=== PATIENT | male | born 1955 | race Caucasian/White ===

== ENCOUNTER → 2016-03-19 | Outpatient (CLI) | payer OTHER ==
[~2016-03-19] MED LIST: ASCA500 PO; CHOL1000 PO; DPRSCR15 TOP; LOSA1TAB38 PO; MULTTAB58 PO; TURM500T PO
--- NOTE | 2016-03-19 13:31 | DIAGNOSTIC IMAGING REPORT ---
TWO VIEW CHEST CLINICAL HISTORY: Cough. FINDINGS: PA and lateral chest radiographs are obtained. No prior studies are available for comparison at the time of dictation. The cardiomediastinal silhouette is unremarkable. Enlargement of the central pulmonary vessels suggests pulmonary artery hypertension. The lungs and pleural spaces are clear. There is no pneumothorax. The bony thorax appears intact. IMPRESSION: No active disease in the chest. Electronically signed by: Nino Coronado M.D. 03/19/2016 1:29 PM Dictated Date/Time: 03/19/2016 1:28 PM
== END | disposition home or self-care (01) ==
LOC: C.RADPV 13:11
PROVIDERS: ATTEND Family Medicine
DX: R05 Cough (principal)

== ENCOUNTER → 2016-03-20 | Outpatient (CLI) | payer OTHER | END | disposition home or self-care (01) | LOC: C.LABPVFM 03-20 10:36 | PROVIDERS: ATTEND Family Medicine | DX: R05 Cough (principal) ==

== ENCOUNTER → 2016-10-14 | Day surgery (SDC) | payer OTHER ==
[2016-10-04 11:06] VITALS: Ht 185.4 cm; Wt 110.5 kg
[~2016-10-14] VITALS: Ht 185.4 cm; Wt 110.5 kg
[~2016-10-14] MED LIST changes: +LIDOCAINE HCL 2% 2 ML VIAL (20MG/ML) ONE; +PROPOFOL IV EMULSION 10 MG/ML 20 ML VIAL IV ONE; +SODIUM CHLORIDE 0.9% 500ML 500 ML IV ONE
--- NOTE | 2016-10-14 14:24 | Endo History and Physical ---
History & Physical Date of Service: Oct 14, 2016. Chief Complaint: Screening Referring Physician: Dr. Erazo History of Present Illness 61 yo CM who presents for screening colonoscopy. Past Surgical History Hx Cardiac Surgery: No Hx Internal Defibrillator: No Hx Pacemaker: No Hx Abdominal Surgery: Yes (EXPLORATORY LAP FOR RUPTURED APPY (ABCESSED) WITH BOWEL RECONSTRUCTION) Hx of Implantable Prosthesis: No Hx Post-Op Nausea and Vomiting: No Hx Cancer Surgery: No Hx Thoracic Surgery: No Hx Orthopedic: No Hx Urinary Tract Surgery: No Family History None Social History Smoking Status: Never Smoker Hx Substance Use: No Hx Alcohol Use: No Allergies Coded Allergies: ANKUSH Inhibitors (Verified Adverse Reaction, Unknown, COUGH, 10/14/16) Current Medications Reported Home Medications Medications Dose Route/Sig Max Daily Dose Days Date Category Turmeric (Turmeric (Curcuma Longa)) 500 Mg Tab 1 Tab PO QAM 10/04/16 Reported Vitamin C (Ascorbic Acid) 500 Mg Tab 1 Tab PO QAM 10/04/16 Reported Vitamin D3 (Cholecalciferol) 1,000 Unit Tab 1 Tab PO QAM 10/04/16 Reported Multivitamin (Multiple Vitamin) 1 Tab Tab 1 Tab PO QAM 10/04/16 Reported Betamethasone Dipropionat (Betamethasone Dip) 45 Appln/15 Gm Cr 1 Appln TOP DAILY PRN 10/04/16 Reported Cozaar (Losartan Potassium) 100 Mg Tab 100 Mg PO QAM 10/04/16 Reported Vital Signs Weight (Kilograms): 110.45 Height (Feet): 6 Height (Inches): 1 Physical Exam General Appearance: WD/WN, no apparent distress Respiratory/Chest: Auscultation: breath sounds normal Cardiovascular: Heart Auscultation: RRR Abdomen: Bowel Sounds: normal Inspection & Palpation: soft, non-distended, no tenderness, guarding & rebound Assessment and Plan Assessment: 61 yo CM who presents for screening colonoscopy. Plan: Proceed with colonoscopy.
--- NOTE | 2016-10-14 16:01 | GI REPORT ---
Procedure Date: 10/14/2016 3:26 PM Procedure: Colonoscopy Indications: Screening for colorectal malignant neoplasm Medicines: Monitored Anesthesia Care Complications: No immediate complications. Estimated Blood Loss: Estimated blood loss: none. Procedure: Pre-Anesthesia Assessment: - Prior to the procedure, a History and Physical was performed, and patient medications and allergies were reviewed. The patient's tolerance of previous anesthesia was also reviewed. The risks and benefits of the procedure and the sedation options and risks were discussed with the patient. All questions were answered, and informed consent was obtained. Prior Anticoagulants: The patient has taken no previous anticoagulant or antiplatelet agents. ASA Grade Assessment: II - A patient with mild systemic disease. After reviewing the risks and benefits, the patient was deemed in satisfactory condition to undergo the procedure. After I obtained informed consent, the scope was passed under direct vision. Throughout the procedure, the patient's blood pressure, pulse, and oxygen saturations were monitored continuously. The On-site loaner was introduced through the anus and advanced to the terminal ileum. The colonoscopy was performed without difficulty. The patient tolerated the procedure well. The quality of the bowel preparation was good. The terminal ileum, ileocecal valve, appendiceal orifice, and rectum were photographed. Findings: Multiple small-mouthed diverticula were found in the sigmoid colon. Non-bleeding internal hemorrhoids were found during retroflexion. The hemorrhoids were small. Impression: - Diverticulosis in the sigmoid colon. - Non-bleeding internal hemorrhoids. - No specimens collected. Recommendation: - Resume previous diet. - Continue present medications. - Repeat colonoscopy in 10 years for surveillance. - Return to primary care physician as previously scheduled. Salvatore Pandya, 10/14/2016 4:01:29 PM This report has been signed electronically. Note Initiated On: 10/14/2016 3:26 PM I attest to the content of the Intraoperative Record and orders documented therein, exceptions below
--- NOTE | 2016-10-14 16:03 | Anesthesiology Progress Note ---
Anesthesia Post Op Note Date & Time Oct 14, 2016 at 16:03 Vital Signs Pain Intensity: 0 Vital Signs Past 12 Hours Date Time Temp Pulse Resp B/P (MAP) Pulse Ox O2 Delivery O2 Flow Rate FiO2 10/14/16 14:20 36.8 71 18 152/80 (104) 95 Room Air Notes Mental Status: alert / awake / arousable, participated in evaluation Pt Amnestic to Procedure: Yes Nausea / Vomiting: adequately controlled Pain: adequately controlled Airway Patency, RR, SpO2: stable & adequate BP & HR: stable & adequate Hydration State: stable & adequate Anesthetic Complications: no major complications apparent
--- NOTE | 2016-10-14 16:22 | Discharge Instructions ---
Endoscopy Patient Instructions Date / Procedure(s) Performed Oct 14, 2016. Colonoscopy Allergy Information Coded Allergies: ANKUSH Inhibitors (Verified Adverse Reaction, Unknown, COUGH, 10/14/16) Discharge Date / Findings Oct 14, 2016. Diverticulosis Internal hemorrhoids Medication Instructions OK to resume all medications today as prescribed Reported Home Medications Medications Dose Route/Sig Max Daily Dose Days Date Category Turmeric (Turmeric (Curcuma Longa)) 500 Mg Tab 1 Tab PO QAM 10/04/16 Reported Vitamin C (Ascorbic Acid) 500 Mg Tab 1 Tab PO QAM 10/04/16 Reported Vitamin D3 (Cholecalciferol) 1,000 Unit Tab 1 Tab PO QAM 10/04/16 Reported Multivitamin (Multiple Vitamin) 1 Tab Tab 1 Tab PO QAM 10/04/16 Reported Betamethasone Dipropionat (Betamethasone Dip) 45 Appln/15 Gm Cr 1 Appln TOP DAILY PRN 10/04/16 Reported Cozaar (Losartan Potassium) 100 Mg Tab 100 Mg PO QAM 10/04/16 Reported Provider Instructions Activity Restrictions - No exercising or heavy lifting for 24 hours. - Do not drink alcohol the day of the procedure. - Do not drive a car or operate machinery until the day after the procedure. - Do not make any important decisions or sign important papers in 24 hours after the procedure. Following Day: - Return to full activity which may include returning to work/school. Diet Start your diet with liquids and light foods (jello, soup, juice, toast). Then eat your usual diet if not nauseated. Treatment For Common After Affects For mild abdominal pain, bloating, or excessive gas: - Rest - Eat lightly - Lie on right side Follow-Up Information Follow-up with Kacey as scheduled Anesthesia Information What You Should Know You have had a procedure that required some medicine to reduce anxiety and discomfort. This treatment is called moderate sedation. After receiving the treatment, you may be sleepy, but you will be able to breathe on your own. The effects of the treatment may last for several hours. Follow these instructions along with Activity/Diet recommendations noted above: * Do NOT do anything where dizziness or clumsiness would be dangerous. * Rest quietly at home today, then you can be up and about tomorrow. * Have a responsible person stay with you the rest of today. * You may have had an I.V. today. If so, you may take the dressing off later today. Recommendations Call your doctor if: * Trouble breathing * Continuous vomiting for more than 24 hours * Temperature above 101 degrees * Severe abdominal pain or bloating * Pain not relieved by pain medicine ordered * There is increased drainage or redness from any incision * A large amount of rectal bleeding greater than 2-3 tablespoons. (If you had a polyp/s removed or have hemorrhoids, a small amount of blood - from the rectum is to be expected.) * You have any unanswered questions or concerns. IN THE EVENT OF A SERIOUS EMERGENCY, GO TO THE NEAREST EMERGENCY ROOM Your discharge instructions were prepared by provider Salvatore Pandya. Patient Instructions Signature Page Ramy Sanders Patient (or Guardian) Signature/Date: I have read and understand the instructions given to me by my caregivers. Caregiver/RN/Doctor Signature/Date: The above-named patient and/or guardian has received patient instructions on this date. + Original Patient Signature Page (only) stays with chart. Please make copy for patient.
[2016-10-14 16:29] VITALS: BP 137/77; PULSE 61; O2SAT 98
== END | disposition home or self-care (01) ==
LOC: C.GI 13:37
PROVIDERS: ATTEND Internal Medicine
DX: Z12.11 Encounter for screening for malignant neoplasm of colon (principal); K57.30 Diverticulosis of large intestine without perforation or abscess without bleeding; K64.8 Other hemorrhoids; Z79.899 Other long term (current) drug therapy

== ENCOUNTER → 2016-10-19 | Outpatient (CLI) | payer OTHER ==
[~2016-10-19] MED LIST changes: -LIDOCAINE HCL 2% 2 ML VIAL (20MG/ML) ONE; -PROPOFOL IV EMULSION 10 MG/ML 20 ML VIAL IV ONE; -SODIUM CHLORIDE 0.9% 500ML 500 ML IV ONE
[2016-10-19 13:29] LABS: ALT/SGPT 46 U/L (12-78); BLOOD UREA NITROGEN 18 mg/dl (7-18); BUN/CREATININE RATIO 17.5 (10-20); CALCIUM 9.1 mg/dl (8.5-10.1); CARBON DIOXIDE 28 mmol/L (21-32); CHLORIDE 104 mmol/L (98-107); CHOLESTEROL 186 mg/dl (0-200); GLUCOSE 137 mg/dl (70-99); POTASSIUM 4.4 mmol/L (3.5-5.1); SODIUM 138 mmol/L (136-145); TRIGLYCERIDES 93 mg/dl (0-150); VERY LOW DENSITY LIPOPROT CALC 19 mg/dl
[2016-10-19 13:34] LABS: ALB/GLOB RATIO 1.2 (0.9-2); ALKALINE PHOSPHATASE 70 U/L (45-117); AST/SGOT 29 U/L (15-37); HDL CHOLESTEROL 46 mg/dl; LDL CHOLESTEROL CALCULATED 121 mg/dl
== END | disposition home or self-care (01) ==
LOC: C.LABPVFM 10:42
PROVIDERS: ATTEND Family Medicine
DX: I10 Essential (primary) hypertension (principal)

== ENCOUNTER → 2017-04-23 | Outpatient (CLI) | payer OTHER ==
[2017-04-23 12:50] LABS: HEMOGLOBIN A1C 6.7 % (4.5-5.6)
[2017-04-23 13:14] LABS: BLOOD UREA NITROGEN 19 mg/dl (7-18); CALCIUM 9.2 mg/dl (8.5-10.1); CARBON DIOXIDE 27 mmol/L (21-32); CREATININE 1.09 mg/dl (0.60-1.40); GLUCOSE 139 mg/dl (70-99); POTASSIUM 4.4 mmol/L (3.5-5.1); SODIUM 135 mmol/L (136-145)
[2017-04-23 13:16] LABS: CHOLESTEROL 173 mg/dl (0-200); LDL CHOLESTEROL CALCULATED 113 mg/dl
== END | disposition home or self-care (01) ==
LOC: C.LABPVFM 08:45
PROVIDERS: ATTEND Family Medicine
DX: I10 Essential (primary) hypertension (principal); E78.5 Hyperlipidemia, unspecified; R73.9 Hyperglycemia, unspecified

== ENCOUNTER → 2017-10-15 | Outpatient (CLI) | payer OTHER ==
[2017-10-15 13:13] LABS: ALBUMIN 3.5 gm/dl (3.4-5.0); ALKALINE PHOSPHATASE 76 U/L (45-117); ALT/SGPT 25 U/L (12-78); AST/SGOT 20 U/L (15-37); BLOOD UREA NITROGEN 24 mg/dl (7-18); CALCIUM 8.6 mg/dl (8.5-10.1); CARBON DIOXIDE 27 mmol/L (21-32); CREATININE 1.29 mg/dl (0.60-1.40); GLUCOSE 143 mg/dl (70-99); POTASSIUM 4.6 mmol/L (3.5-5.1); SODIUM 138 mmol/L (136-145); TOTAL PROTEIN 6.8 gm/dl (6.4-8.2)
[2017-10-15 13:17] LABS: HEMOGLOBIN A1C 6.5 % (4.5-5.6)
== END | disposition home or self-care (01) ==
LOC: C.LABPVFM 08:36
PROVIDERS: ATTEND Family Medicine
DX: I10 Essential (primary) hypertension (principal); E78.5 Hyperlipidemia, unspecified; L30.9 Dermatitis, unspecified; E11.9 Type 2 diabetes mellitus without complications

== ENCOUNTER 2019-09-05 13:38 | Inpatient (IN) ==
[2019-09-05] MEDS ORDERED: MoRPHine SULFATE 4 MG/ML 1 ML CARP\\VIAL IV STA (13:47)
[2019-09-05] MEDS ORDERED: NITROGLYCERIN 2% OINTMENT 30GM TUBE EXT STA (13:47)
[2019-09-05 13:59] LABS: Basophils # (auto) 0.03 K/uL (0-0.2); Basophils % (auto) 0.3 %; Eosinophils # (auto) 0.07 K/uL (0-0.5); Eosinophils % (auto) 0.7 %; Hematocrit (blood only) 45.6 % (42-52); Hemoglobin 15.4 g/dL (14.0-18.0); Immature Granulocytes # (auto) 0.03 K/uL (0.00-0.02); Immature Granulocytes % (auto) 0.3 %; Lymphocytes % (auto) 13.8 %; Mean Corpuscular Hemoglobin 30.7 pg (25-34); Mean Corpuscular Hgb Conc 33.8 g/dL (32-36); Mean Platelet Volume 9.3 fL (7.4-10.4); Monocytes # (auto) 0.58 K/uL (0.11-0.59); Monocytes % (auto) 5.7 %; Neutrophils # (auto) 8.01 K/uL (1.4-6.5); Neutrophils % (auto) 79.2 %; Platelet Count 240 K/uL (130-400); RDW Coefficient of Variation 13.9 % (11.5-14.5); RDW Standard Deviation 46.1 fL (36.4-46.3); Red Blood Count 5.01 M/uL (4.7-6.1); White Blood Count 10.12 K/uL (4.8-10.8)
[2019-09-05] MEDS ORDERED: SODIUM CHLORIDE 0.9% 500 ML IV SCH (14:00)
[2019-09-05 14:09] LABS: iSTAT Creatinine 1.1 mg/dl (0.6-1.3); iSTAT Hemoglobin 15.3 g/dl (14.0-18.0); iSTAT Ionized Calcium 1.17 mmol/l (1.12-1.32); iSTAT Potassium 4.4 mmol/L (3.3-5.0)
[2019-09-05 14:10] LABS: INR 1.1 (0.9-1.1); Partial Thromboplastin Ratio 0.9; Partial Thromboplastin Time 24.4 Seconds (21.0-31.0); Prothrombin Time 11.3 Seconds (9.0-12.0)
--- NOTE | 2019-09-05 14:14 | Emergency Department Note ---
Impression & Plan Acute non-ST elevation myocardial infarction (NSTEMI), Acute hyperglycemia, Syncope ED Provider Note NAME: SHAE ISSA AGE: 63 SEX: M : 1955 ARRIVES VIA: Ambulance INFORMANT: Patient, ED PROVIDER(S): Kalyan Lao MD Chief Complaint: Chest pain HPI: Patient states that he said shortness of breath for several weeks but noticed that he was having some left-sided chest pain. Patient described it as though something was sitting on the chest. Patient states it is nonradiating did have associated diaphoresis nausea and vomiting. The patient did receive aspirin and nitroglycerin in route. That did improve his symptoms. He stated that the morphine made his stomach upset. The patient denies any prior history of stroke or heart attack. 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 The patient is not currently on any blood thinning medications. The patient had gone out to work on his truck earlier today and felt very lightheaded and subsequently got himself down on the ground where he reportedly passed out for several minutes. Patient denies any recent travel, fevers, chills, cough or shortness of breath. ROS: See HPI for pertinent positives and negatives. A total of 10 systems were reviewed and otherwise negative. Past medical history: See below Surgical history: See below Social history: See below Physical Exam: GENERAL: Moderate distress, mildly ill-appearing. Pale in appearance. EYE EXAM: Normal conjunctiva. PERRL, no anisocoria and EOM's grossly intact w/o pain. NECK: Supple, no nuchal rigidity, no adenopathy, non-tender. No signs of menin gismus. LUNGS: Clear to auscultation. Normal chest wall mechanics. HEART: NSR, no MRG. ABDOMEN: Abdomen soft, non-tender, normo-active bowel sounds, no masses, no rebound or guarding. Well-healed right lower quadrant surgical scar. BACK: No CVA TTP. SKIN: No rashes and no bruising. UPPER EXTREMITIES: Upper extremities are grossly normal. LOWER EXTREMITIES: Grossly normal, no edema. Negative Homans sign bilaterally. NEURO EXAM: Opens eyes to voice, follows all commands, cranial nerves II-XII g rossly intact, normal speech, moves all 4 extremities on command w/o issue. Differential diagnoses: Cardiac ischemia, aortic dissection, pulmonary embolism, pneumothorax, pneumonia, pericarditis, myocarditis, esophageal rupture, GERD, cholecystitis, pancreatitis, musculoskeletal, as well as other pathologies. Course: Patient was seen and evaluated the bedside. Full history physical exam was performed. EKG: Indication: Chest pain Normal sinus rhythm, rate of 96, prolonged QTC, normal axis, T wave inversions inferiorly possibly with a very slight depression. No obvious changes in the an terior or lateral leads. No prior for comparison. Repeat EKG indication: Chest pain Normal sinus rhythm, rate of 95, normal intervals, normal axis, T wave inversions still present in the inferior leads with possible subtle depression. No ST changes. This does appear unchanged from prior EKG at 1344 Imaging Studies: Radiology results as stated below per my review in the radiologist's interpret ation: Cardiac monitoring: An order was placed for continuous cardiac monitoring. The monitor shows a rate of 96 with sinus rhythm. MDM: Patient does present with concern for chest pain. Patient did receive aspirin nitro in route with mild relief. Patient did have immediate blood work completed along with a troponin. Troponin is detectable 0.15. I did call x-ray in order to obtain a stat chest x-ray with the thinking that if the cardiomediastinal silhouette appears grossly normal will start heparin. Patient did have improvement with the Nitropaste and had already received aspirin. Kailyn ramirez's has a normal white count H&H and platelet count. Lab troponin is 0.236. This x-ray appears clear heparin bolus and drip ordered. I did speak with the on-call buyer agent, Dr. Mota, as I was concerned about the patient's NSTEMI. He did recommend a Plavix load. Otherwise, in agreement with current medications and management. This was ordered. I did speak with the on-call hospitalist Dr. Carcamo. The patient was subsequently made to the medicine service. I did convey to the patient that if at any time he had a change in his chest pain he would need to let somebody know in order to repeat EKG to check for dynamic changes. Patient understood. Critical Care: I have personally spent 42 minutes of critical care time in direct management of this patient. This includes bedside care, interpretation of diagnostic studies, and testing, discussion with consultants, patient, and family members, and other require inpatient management activities. This 42 minutes is in excess of all separately billable procedures. Past Med/Surg History Medical History Asymmetrical right sensorineural hearing loss Diabetes mellitus Hyperlipidemia Hypertension Surgical History H/O hernia repair H/O vasectomy History of appendectomy Family History Mother Diabetes Hypertension Father Hypertension Pancreas cancer Sister Skin cancer Allergies Hypertension Denies family history of Ovarian cancer Prostate cancer Myocardial infarction Breast cancer Colorectal cancer Social History marital status: Current Living Situation: Spouse current occupational status: employed current occupation: plant maintenance supervisor at [employer] Feels Safe at Home: Yes Smoking Status: Never smoker Hx Alcohol Use: Yes Hx Substance Use: No caffeine: Yes Dental Care, Regularly: No Physical Activity Frequency: 1-2 Times per Week Seatbelt Use: always Sunscreen Use: Yes Allergies Allergies Allergy/AdvReac Type Severity Reaction Status Date / Time ANKUSH Inhibitors AdvReac Unknown COUGH Verified 09/05/19 15:12 Home Meds Home Medications Medication Instructions Recorded Confirmed betamethasone dipropionate 0.05 % 1 appln TOPICAL DAILY PRN #1 ml 09/19/18 09/05/19 lotion metronidazole 1 % topical gel 1 appln TOPICAL DAILY PRN #1 gm 09/19/18 09/05/19 tadalafil 20 mg tablet 20 mg PO UD PRN #18 tab 10/26/18 09/05/19 aspirin 81 mg PO QAM 09/05/19 09/05/19 clobetasol 1 appln TOP BID PRN 09/05/19 09/05/19 losartan 100 mg PO QAM 09/05/19 09/05/19 metformin 500 mg PO BID 09/05/19 09/05/19 metoprolol succinate 12.5 mg PO QAM 09/05/19 09/05/19 Previous Rx's Medication Instructions Recorded albuterol sulfate 90 mcg/actuation See Rx Instructions .ROUTE 03/26/19 aerosol inhaler .COMPLEX #8.5 gram Results & Data (ED) Vital Signs Vital Signs - 24 hr 09/05/19 13:41 09/05/19 13:45 09/05/19 13:59 Temperature Temperature Source Pulse Rate 100 H 97 H Pulse Rate [Apical] Pulse Rate from SpO2 Sensor 98 H 100 H 98 H Pulse Rhythm Pulse Strength Respiratory Rate 21 13 Respiratory Effort / Characteristics Respiratory Depth Blood Pressure 145/95 H 148/91 H 142/90 H Blood Pressure [Right Arm] Blood Pressure Mean 100 114 112 Blood Pressure Mean [Right Arm] Blood Pressure Position Pulse Oximetry 94 94 92 Oxygen Delivery Method Oxygen Flow Rate Sepsis Recent Fever Within 48 Hours Sepsis Action Taken by Nursing 09/05/19 14:00 09/05/19 14:14 09/05/19 14:15 Temperature 37 C Temperature Source Oral Pulse Rate 95 H 92 H 97 H Pulse Rate [Apical] Pulse Rate from SpO2 Sensor 95 H 98 H Pulse Rhythm Regular Pulse Strength Normal Respiratory Rate 17 22 24 Respiratory Effort / Characteristics Non-Labored Spontaneous Respiratory Depth Normal Blood Pressure 142/92 H 145/95 H 110/85 Blood Pressure [Right Arm] Blood Pressure Mean 106 111 98 Blood Pressure Mean [Right Arm] Blood Pressure Position Sitting Pulse Oximetry 96 98 95 Oxygen Delivery Method Room Air Oxygen Flow Rate Sepsis Recent Fever Within 48 Hours No Sepsis Action Taken by Nursing No Action Required 09/05/19 14:30 09/05/19 14:45 09/05/19 15:00 Temperature Temperature Source Pulse Rate 92 H 94 H 96 H Pulse Rate [Apical] Pulse Rate from SpO2 Sensor 93 H 95 H 95 H Pulse Rhythm Pulse Strength Respiratory Rate 12 21 12 Respiratory Effort / Characteristics Respiratory Depth Blood Pressure 128/90 127/90 136/89 Blood Pressure [Right Arm] Blood Pressure Mean 107 104 95 Blood Pressure Mean [Right Arm] Blood Pressure Position Pulse Oximetry 97 97 96 Oxygen Delivery Method Room Air Oxygen Flow Rate Sepsis Recent Fever Within 48 Hours Sepsis Action Taken by Nursing 09/05/19 15:01 09/05/19 15:15 09/05/19 15:31 Temperature Temperature Source Pulse Rate 92 H 95 H Pulse Rate [Apical] 96 H Pulse Rate from SpO2 Sensor 92 H 96 H Pulse Rhythm Pulse Strength Respiratory Rate 13 14 18 Respiratory Effort / Characteristics Non-Labored Respiratory Depth Normal Blood Pressure 140/81 Blood Pressure [Right Arm] 125/87 Blood Pressure Mean 98 Blood Pressure Mean [Right Arm] 99 Blood Pressure Position Pulse Oximetry 94 95 96 Oxygen Delivery Method Nasal Cannula Oxygen Flow Rate 2 Sepsis Recent Fever Within 48 Hours Sepsis Action Taken by Detention Medications Current Medication List: was personally reviewed by me Laboratory Data Attestation: I reviewed the patient's lab results. Result diagrams: 09/05/19 13:50 09/05/19 13:50 Lab Results 09/05/19 09/05/19 09/05/19 Range/Units 13:50 13:50 13:50 WBC 10.12 (4.8-10.8) K/uL RBC 5.01 (4.7-6.1) M/uL Hgb 15.4 (14.0-18.0) g/dL POC Hgb (14.0-18.0) g/dl Hct 45.6 (42-52) % POC Hct (42-52) % MCV 91.0 (80-100) fL MCH 30.7 (25-34) pg MCHC 33.8 (32-36) g/dL RDW Std Deviation 46.1 (36.4-46.3) fL RDW Coeff of Abraham 13.9 (11.5-14.5) % Plt Count 240 (130-400) K/uL MPV 9.3 (7.4-10.4) fL Immature Gran % (Auto) 0.3 % Neut % (Auto) 79.2 % Lymph % (Auto) 13.8 % [place] % (Auto) 5.7 % Eos % (Auto) 0.7 % Baso % (Auto) 0.3 % Neut # (Auto) 8.01 H (1.4-6.5) K/uL Lymph # (Auto) 1.40 (1.2-3.4) K/uL [place] # (Auto) 0.58 (0.11-0.59) K/uL Eos # (Auto) 0.07 (0-0.5) K/uL Baso # (Auto) 0.03 (0-0.2) K/uL Immature Gran # (Auto) 0.03 H (0.00-0.02) K/uL PT 11.3 (9.0-12.0) Seconds INR 1.1 (0.9-1.1) APTT 24.4 (21.0-31.0) Seconds PTT Ratio 0.9 POC Sodium (135-144) mmol/L Sodium 139 (136-145) mmol/L POC Potassium (3.3-5.0) mmol/L Potassium 4.4 (3.5-5.1) mmol/L POC Chloride (101-112) mmol/L Chloride 106 (98-107) mmol/L Carbon Dioxide 21 (21-32) mmol/L POC Total CO2 (24-31) mmol/L Anion Gap 12.0 H (3-11) POC Anion Gap (16-25) mmol/L POC BUN (7-18) mg/dl BUN 26 H (7-18) mg/dl Creatinine 1.21 (0.6-1.4) mg/dl POC Creatinine (0.6-1.3) mg/dl Est Cr Clr Drug Dosing Not Reportable Est GFR ( Amer) 72.4 Est GFR (Non-Af Amer) 62.4 BUN/Creatinine Ratio 21.2 H (10-20) Glucose 215 H (70-99) mg/dl POC Glucose (other) (70-99) mg/dl Calcium 8.8 (8.5-10.1) mg/dl POC Ioniz Calcium Carlos (1.12-1.32) mmol/l Phosphorus 2.2 L (2.5-4.9) mg/dl Magnesium 1.9 (1.8-2.4) mg/dl Total Bilirubin 0.9 (0.2-1) mg/dl AST 53 H (15-37) U/L ALT 55 (12-78) U/L Alkaline Phosphatase 85 (45-117) U/L POC Troponin I (0-0.045) ng/ml Troponin I 0.236 H* (0-0.045) ng/ml Total Protein 7.1 (6.4-8.2) gm/dl Albumin 3.5 (3.4-5.0) gm/dl Globulin 3.6 (2.5-4.0) gm/dl Albumin/Globulin Ratio 1.0 (0.9-2) Lipase 66 L (73-393) U/L 09/05/19 09/05/19 Range/Units 13:51 13:53 WBC (4.8-10.8) K/uL RBC (4.7-6.1) M/uL Hgb (14.0-18.0) g/dL POC Hgb 15.3 (14.0-18.0) g/dl Hct (42-52) % POC Hct 45 (42-52) % MCV (80-100) fL MCH (25-34) pg MCHC (32-36) g/dL RDW Std Deviation (36.4-46.3) fL RDW Coeff of Abraham (11.5-14.5) % Plt Count (130-400) K/uL MPV (7.4-10.4) fL Immature Gran % (Auto) % Neut % (Auto) % Lymph % (Auto) % [place] % (Auto) % Eos % (Auto) % Baso % (Auto) % Neut # (Auto) (1.4-6.5) K/uL Lymph # (Auto) (1.2-3.4) K/uL [place] # (Auto) (0.11-0.59) K/uL Eos # (Auto) (0-0.5) K/uL Baso # (Auto) (0-0.2) K/uL Immature Gran # (Auto) (0.00-0.02) K/uL PT (9.0-12.0) Seconds INR (0.9-1.1) APTT (21.0-31.0) Seconds PTT Ratio POC Sodium 137 (135-144) mmol/L Sodium (136-145) mmol/L POC Potassium 4.4 (3.3-5.0) mmol/L Potassium (3.5-5.1) mmol/L POC Chloride 106 (101-112) mmol/L Chloride (98-107) mmol/L Carbon Dioxide (21-32) mmol/L POC Total CO2 21 L (24-31) mmol/L Anion Gap (3-11) POC Anion Gap 15.0 L (16-25) mmol/L POC BUN 25 H (7-18) mg/dl BUN (7-18) mg/dl Creatinine (0.6-1.4) mg/dl POC Creatinine 1.1 (0.6-1.3) mg/dl Est Cr Clr Drug Dosing Est GFR ( Amer) Est GFR (Non-Af Amer) BUN/Creatinine Ratio (10-20) Glucose (70-99) mg/dl POC Glucose (other) 212 H (70-99) mg/dl Calcium (8.5-10.1) mg/dl POC Ioniz Calcium Carlos 1.17 (1.12-1.32) mmol/l Phosphorus (2.5-4.9) mg/dl Magnesium (1.8-2.4) mg/dl Total Bilirubin (0.2-1) mg/dl AST (15-37) U/L ALT (12-78) U/L Alkaline Phosphatase (45-117) U/L POC Troponin I 0.15 H (0-0.045) ng/ml Troponin I (0-0.045) ng/ml Total Protein (6.4-8.2) gm/dl Albumin (3.4-5.0) gm/dl Globulin (2.5-4.0) gm/dl Albumin/Globulin Ratio (0.9-2) Lipase (73-393) U/L Administered Medications Heparin Sodium/Dextrose (Heparin Sodium/Dextrose) 25,000 units in 500 mls @ 34 mls/hr IV .[id number] [facility]; Protocol Stop: 10/05/19 14:29 Last Admin: 09/05/19 14:27 Dose: 1,700 units/hr, 34 mls/hr Documented by: [id number] Cosigned by: [id number] Discontinued Medications Clopidogrel Bisulfate (Plavix) 300 mg PO NOW STA Stop: 09/05/19 14:23 Last Admin: 09/05/19 14:26 Dose: 300 mg Documented by: [id number] Heparin Sodium (Porcine) (Heparin Sodium (Porcine)) Confirm Administered Dose 5,000 units .ROUTE .STK-MED ONE Stop: 09/05/19 14:32 Last Admin: 09/05/19 14:33 Dose: 5,000 units Documented by: [id number] Cosigned by: [id number] Heparin Sodium (Porcine) (Heparin Iv Bolus) 7,000 units IV NOW STA Stop: 09/05/19 14:39 Last Admin: 09/05/19 14:47 Dose: Not Given Documented by: [id number] Heparin Sodium/Dextrose () 1 ea IV NOW STA; Protocol Stop: 09/05/19 14:19 Last Admin: 09/05/19 14:36 Dose: Not Given Documented by: [id number] Sodium Chloride (Nss) 500 mls @ 999 mls/hr IV .Q31M [facility] [place] Stop: 09/05/19 14:30 Last Admin: 09/05/19 13:59 Dose: 999 mls/hr Documented by: [id number] Metoprolol Tartrate (Lopressor) 25 mg PO ONE STA Stop: 09/05/19 14:52 Last Admin: 09/05/19 15:30 Dose: 25 mg Documented by: [id number] Morphine Sulfate (Morphine Sulfate) 4 mg IV NOW STA Stop: 09/05/19 13:48 Last Admin: 09/05/19 15:27 Dose: Not Given Documented by: [id number] Nitroglycerin (Nitro-Bid 2%) 1 inch EXT NOW STA Stop: 09/05/19 13:48 Last Admin: 09/05/19 13:59 Dose: 1 inch Documented by: [id number] Discharge Plan Visit Data Chief Complaint: Chest Pain Stated Complaint: Chest Pressure ED Provider: Kalyan Lao Discharge Problem: Acute non-ST elevation myocardial infarction (NSTEMI), Acute hyperglycemia, Syncope Discharge Instructions Interventions: ED Discharge Assessment Last Done: 09/05/19 15:28 Forms Stand Alone Forms: P2i Prescriptions Prescriptions: No Action albuterol sulfate [ProAir HFA] 90 mcg/actuation HFA aerosol inhaler See Rx Instructions .ROUTE .COMPLEX Qty: 8.5 RF: 1 metronidazole 1 % gel 1 appln topical DAILY PRN (Reason: acne rosea) Qty: 1 RF: 0 betamethasone dipropionate 0.05 % lotion 1 appln topical DAILY PRN (Reason: skin irritation) Qty: 1 RF: 0 tadalafil 20 mg tablet 20 mg PO UD PRN (Reason: sexual activity) Qty: 18 RF: 0 aspirin 81 mg Tablet,Delayed Release (Dr/Ec) 81 mg PO QAM RF: 0 metoprolol succinate 25 mg tablet extended release 24 hr 12.5 mg PO QAM RF: 0 clobetasol 0.05 % ointment 1 appln TOP BID PRN (Reason: .) RF: 0 losartan 100 mg tablet 100 mg PO QAM RF: 0 metformin 500 mg tablet extended release 24 hr 500 mg PO BID RF: 0 Referrals Referrals: Jesus Erazo MD [Primary Care Provider] -
[2019-09-05 14:15] LABS: Alanine Aminotransferase 55 U/L (12-78); Albumin Level 3.5 gm/dl (3.4-5.0); Aspartate Aminotransferase 53 U/L (15-37); BUN Creatinine Ratio 21.2 (10-20); Blood Urea Nitrogen 26 mg/dl (7-18); Calcium 8.8 mg/dl (8.5-10.1); Carbon Dioxide 21 mmol/L (21-32); Chloride 106 mmol/L (98-107); Est GFR (African American) 72.4; Est GFR (Non-African American) 62.4; Glucose 215 mg/dl (70-99); Lipase 66 U/L (73-393); Magnesium 1.9 mg/dl (1.8-2.4); Potassium 4.4 mmol/L (3.5-5.1); Sodium 139 mmol/L (136-145)
[2019-09-05] MEDS ORDERED: CLOPIDOGREL BISULFATE 300 MG TAB PO STA (14:22)
--- NOTE | 2019-09-05 14:22 | XRay Report ---
XR chest 1V portable HISTORY: Atypical Chest Pain COMPARISON: Chest 03/19/2016. FINDINGS: The lungs are clear. Cardiac silhouette is normal in size. No pleural effusions. No pneumot horax. IMPRESSION: No acute process. ACT 112: Negative or not required by law. Electronically signed by: Channing Waldrop M.D. 09/05/2019 2:20 PM
[2019-09-05 14:24] LABS: Alkaline Phosphatase 85 U/L (45-117); Bilirubin,Total 0.9 mg/dl (0.2-1); Globulin 3.6 gm/dl (2.5-4.0); Phosphorus 2.2 mg/dl (2.5-4.9); Total Protein 7.1 gm/dl (6.4-8.2); Troponin I 0.236 ng/ml (0-0.045)
[2019-09-05] MEDS: HEPARIN SODIUM/DEXTROSE 25,000 UNITS/500 ML BAG IV SCH (14:27)
[2019-09-05] MEDS ORDERED: HEPARIN SOD 5,000 UNIT/0.5 ML VIAL ONE (14:31)
[2019-09-05] MEDS ORDERED: Heparin BOLUS **ED Use Only IV STA (14:38)
[2019-09-05] MEDS ORDERED: METOPROLOL TARTRATE 25 MG TAB PO STA (14:51)
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
[2019-09-05] MEDS ORDERED: ONDANSETRON INJ 2 MG/ML 2 ML VIAL IV PRN (16:19)
[2019-09-05] MEDS ORDERED: POLYETHYLENE (MIRALAX) 17 GM PACK PO PRN (16:19)
[2019-09-05] MEDS ORDERED: NITROGLYCERIN SL 0.4 MG/TAB TAB SL PRN (16:19)
[2019-09-05] MEDS ORDERED: ALUMINUM/MAGNESIUM SUSP 30 ML UDC PO PRN (16:19)
[2019-09-05] MEDS ORDERED: MoRPHine SULFATE 2 MG/ML CARP IV PRN (16:19)
[2019-09-05] MEDS ORDERED: MAGNESIUM HYDROXIDE SUSP 30 ML UDC PO PRN (16:19)
[2019-09-05] MEDS: METOPROLOL TARTRATE 1 MG/ML VIAL IV SCH ×2 (17:48→23:32)
[2019-09-05] MEDS: NITROGLYCERIN 2% OINTMENT 30GM TUBE EXT SCH ×2 (17:48→23:32)
[2019-09-05] MEDS ORDERED: NITROGLYCERIN 2% OINTMENT 30GM TUBE EXT SCH (18:00)
--- NOTE | 2019-09-05 18:30 | Cardiology Consultation ---
Date of Consultation September 05, 2019 Assessment & Plan (1) NSTEMI (non-ST elevated myocardial infarction): Part of the patient's presentation include chest pressure. He is noted to have elevations in his cardiac biomarkers although minimal currently. His EKG is suspicious for ischemia. Certainly has risk factors for coronary disease. Based on this information I think would be appropriate to treat him for an acute coronary syndrome. He has been started on systemic anticoagulation. He has received beta-blockade, aspirin, Plavix and is currently on topical nitrates. I asked him several times about current symptoms and he did not endorse any current symptoms of chest discomfort. It seems that his presenting symptoms have resolved at this time. I recommended cardiac catheterization to be performed tomorrow. Described the risks benefits and alternatives to the procedure and he is agreeable. We will keep him NPO after midnight and continue to monitor his symptoms. (2) Syncope: His initial symptoms appear to be dizziness and syncope. He appears to be under a great deal of stress currently and this may have been vagally mediated. However, if there is a concern regarding an acute coronary syndrome and coronary disease we need to be wary of ventricular arrhythmias. Will continue to monitor him on telemetry. He has been administered beta-blockade. We will obtain an echocardiogram tomorrow to see if there is other substrate for more malignant causes of syncope. (3) Hypertension: (4) Hyperlipidemia: His lipid profile demonstrates suboptimal control given his risk factors. In the setting of an NSTEMI and likely coronary disease he will be advised to start statin therapy. It seems he was prescribed simvastatin previously did develop some muscle aches and pains. (5) Diabetes mellitus: Will need to hold metformin to facilitate coronary angiography. History of Present Illness Reason for Consultation: Chest pain, NSTEMI Requesting Physician: Dona Attending Physician: Jesus Carcamo MD History of Present Illness The patient is a 63-year-old gentleman without a known history of cardiac disease who experienced an episode of dizziness, syncope and subsequent chest discomfort earlier today. It seems that the patient has not been feeling well for a couple of weeks. He had some difficulty characterizing symptoms specifically, but has had an element of exercise intolerance. This is most noticeable with walking. He states that while he usually could walk certain distances he now can walk about half is far before becoming somewhat weak and tired. He did not report symptoms of exertional chest discomfort. He was not limited by shortness of breath. Today he was performing some routine activity when he began to feel somewhat dizzy and weak. He went inside and checked his heart rate on a home heart rate monitor. Did not appear to be any abnormality and he attempted to resume his work. However this point he felt markedly worse. He was quite dizzy and lightheaded and actually got down on the ground where he believes he lost consciousness for few minutes. Upon awakening he also developed significant chest discomfort that he describes as a pressure in the precordium. He called for his but could not reach her. He subsequently dial 911 was brought to our emergency room via EMS. EN route the patient did receive nitroglycerin and morphine. He states that his symptom chest discomfort improved but he developed nausea and vomiting from the morphine. Patient does report symptoms of dizziness in the past. Most of these appear to be positional in nature. He also has a rare sense of defibrillation which involves a sense of palpitation not always associated with dizziness. He has not had chest discomfort of this nature in the past. Patient's symptoms of chest discomfort appear to have resolved in the emergency room. He continued to have an element of nausea after narcotic administration. Currently he denies chest pressure or chest pain. He states he is quite comfortable with the exception of a headache and some mild sense of dysphoria. Allergies Allergy/AdvReac Type Severity Reaction Status Date / Time ANKUSH Inhibitors AdvReac Unknown COUGH Verified 09/05/19 15:12 Home Medications Home Medications Medication Instructions Recorded Confirmed Type betamethasone dipropionate 0.05 % 1 appln TOPICAL DAILY PRN #1 ml 09/19/18 09/05/19 History lotion metronidazole 1 % topical gel 1 appln TOPICAL DAILY PRN #1 gm 09/19/18 09/05/19 History tadalafil 20 mg tablet 20 mg PO UD PRN #18 tab 10/26/18 09/05/19 History albuterol sulfate 90 mcg/actuation See Rx Instructions .ROUTE 03/26/19 09/05/19 Rx aerosol inhaler .COMPLEX #8.5 gram aspirin 81 mg PO QAM 09/05/19 09/05/19 History clobetasol 1 appln TOP BID PRN 09/05/19 09/05/19 History losartan 100 mg PO QAM 09/05/19 09/05/19 History metformin 500 mg PO BID 09/05/19 09/05/19 History metoprolol succinate 12.5 mg PO QAM 09/05/19 09/05/19 History Patient History Medical History Asymmetrical right sensorineural hearing loss Diabetes mellitus Hyperlipidemia Hypertension Surgical History H/O hernia repair H/O vasectomy History of appendectomy Family History Mother Diabetes Hypertension Father Hypertension Pancreas cancer Sister Skin cancer Allergies Hypertension Denies family history of Ovarian cancer Prostate cancer Myocardial infarction Breast cancer Colorectal cancer Social History Preferred Language: Frisian Communication Ability: Effective Hvac Design Engineer Required: No Beliefs That Will Affect Care: None marital status: Current Living Situation: Spouse current occupational status: employed current occupation: hotel maintenance technician at [employer] Other Information That Helps Us Care for You: No Feels Safe at Home: Yes Safety Concerns: Feels Safe At This Time Smoking Status: Never smoker Hx Alcohol Use: Yes Hx Substance Use: No caffeine: Yes Dental Care, Regularly: No Physical Activity Frequency: 1-2 Times per Week Seatbelt Use: always Sunscreen Use: Yes Review of Systems Review of Systems: All systems reviewed & are unremarkable except as noted in HPI & below No recent fevers or chills. No lower extremity pain. No pleuritic chest pain. No difficulty taking deep breaths. Physical Exam Physical Exam: The patient is alert and oriented. Mood and affect appeared normal. He answered all questions appropriately. HEENT: Pupils are equal and reactive to light and accommodation. Extraocular movements are intact. The sclerae are anicteric. Neuro: Cranial nerves intact Neck: Patient's neck is supple. He has palpable carotid pulses bilaterally without bruits on auscultation. There is no evidence of jugular venous distention. The thyroid is not enlarged. Lungs: Clear to auscultation bilaterally. He has good air movement without use of accessory muscles. No rales wheezes or rhonchi. Cardiac: Heart demonstrates a regular rate and rhythm. Normal S1 and S2. No murmurs on examination. Pulses: The patient has palpable radial pulses bilaterally that are equal in intensity Extremities: There was no evidence of hypoperfusion. There is no cyanosis or clubbing. Mild lower extremity edema. Skin: I did not appreciate any rashes on examination today. Results & Data ([facility]) Vital Signs (Past 12 Hours) Vital Signs Temp Pulse Pulse Pulse Pulse Resp BP 09/05/19 17:48 92 H 128/77 09/05/19 17:46 92 H 09/05/19 15:31 96 H 18 09/05/19 15:15 95 H 14 140/81 09/05/19 15:01 92 H 13 09/05/19 15:00 36.6 C 96 H 102 H 24 136/89 09/05/19 14:45 94 H 21 127/90 09/05/19 14:30 92 H 12 128/90 09/05/19 14:15 97 H 24 110/85 09/05/19 14:14 37 C 92 H 22 145/95 H 09/05/19 14:00 95 H 17 142/92 H 09/05/19 13:59 97 H 13 142/90 H 09/05/19 13:45 100 H 21 148/91 H 09/05/19 13:41 145/95 H BP BP Pulse Ox 09/05/19 17:48 09/05/19 17:46 128/77 09/05/19 15:31 125/87 96 09/05/19 15:15 95 09/05/19 15:01 94 09/05/19 15:00 151/100 H 92 09/05/19 14:45 97 09/05/19 14:30 97 09/05/19 14:15 95 09/05/19 14:14 98 09/05/19 14:00 96 09/05/19 13:59 92 09/05/19 13:45 94 09/05/19 13:41 94 Laboratory Results Abnormal Lab Results 09/05/19 09/05/19 09/05/19 13:50 13:50 13:50 WBC 10.12 RBC 5.01 Hgb 15.4 POC Hgb Hct 45.6 POC Hct MCV 91.0 MCH 30.7 MCHC 33.8 RDW Std Deviation 46.1 RDW Coeff of Abraham 13.9 Plt Count 240 MPV 9.3 Immature Gran % (Auto) 0.3 Neut % (Auto) 79.2 Lymph % (Auto) 13.8 [place] % (Auto) 5.7 Eos % (Auto) 0.7 Baso % (Auto) 0.3 Neut # (Auto) 8.01 H Lymph # (Auto) 1.40 [place] # (Auto) 0.58 Eos # (Auto) 0.07 Baso # (Auto) 0.03 Immature Gran # (Auto) 0.03 H PT 11.3 INR 1.1 APTT 24.4 PTT Ratio 0.9 POC Sodium Sodium 139 POC Potassium Potassium 4.4 POC Chloride Chloride 106 Carbon Dioxide 21 POC Total CO2 Anion Gap 12.0 H POC Anion Gap POC BUN BUN 26 H Creatinine 1.21 POC Creatinine Est Cr Clr Drug Dosing Not Reportable Est GFR ( Amer) 72.4 Est GFR (Non-Af Amer) 62.4 BUN/Creatinine Ratio 21.2 H Glucose 215 H POC Glucose (other) Calcium 8.8 POC Ioniz Calcium Carlos Phosphorus 2.2 L Magnesium 1.9 Total Bilirubin 0.9 AST 53 H ALT 55 Alkaline Phosphatase 85 POC Troponin I Troponin I 0.236 H* Total Protein 7.1 Albumin 3.5 Globulin 3.6 Albumin/Globulin Ratio 1.0 Lipase 66 L 09/05/19 09/05/19 09/05/19 13:51 13:53 17:25 WBC RBC Hgb POC Hgb 15.3 Hct POC Hct 45 MCV MCH MCHC RDW Std Deviation RDW Coeff of Abraham Plt Count MPV Immature Gran % (Auto) Neut % (Auto) Lymph % (Auto) [place] % (Auto) Eos % (Auto) Baso % (Auto) Neut # (Auto) Lymph # (Auto) [place] # (Auto) Eos # (Auto) Baso # (Auto) Immature Gran # (Auto) PT INR APTT PTT Ratio POC Sodium 137 Sodium POC Potassium 4.4 Potassium POC Chloride 106 Chloride Carbon Dioxide POC Total CO2 21 L Anion Gap POC Anion Gap 15.0 L POC BUN 25 H BUN Creatinine POC Creatinine 1.1 Est Cr Clr Drug Dosing Est GFR ( Amer) Est GFR (Non-Af Amer) BUN/Creatinine Ratio Glucose POC Glucose (other) 212 H Calcium POC Ioniz Calcium Carlos 1.17 Phosphorus Magnesium Total Bilirubin AST ALT Alkaline Phosphatase POC Troponin I 0.15 H Troponin I 0.474 H* Total Protein Albumin Globulin Albumin/Globulin Ratio Lipase Diagnostic Findings Chest x-ray did not demonstrate any acute process. Essentially normal. ECG Additional Comments: Serial EKGs demonstrated sinus rhythm with some nonspecific ST segment changes. PG Care Time/CCT Total # of Minutes Spent Total Time Spent with Patient: Total time spent is greater than 50% in coordination of care (as documented) at patient's floor/unit and/or counseling patient: Coding Level of Care Code 23659 Initial Inpt Care Lvl 3 Diagnoses NSTEMI (non-ST elevated myocardial infarction) I21.4 Syncope R55 Hypertension I10 Hyperlipidemia E78.5 Diabetes mellitus E11.9
[2019-09-05] MEDS: ACETAMINOPHEN 325 MG TAB PO PRN (20:28)
--- NOTE | 2019-09-05 20:40 | Electrocardiogram Report ---
Test Reason : Blood Pressure : / mmHG Vent. Rate : 096 BPM Atrial Rate : 096 BPM P-R Int : 168 ms QRS Dur : 098 ms QT Int : 378 ms P-R-T Axes : 064 064 003 degrees QTc Int : 477 ms Normal sinus rhythm Incomplete right bundle branch block Nonspecific T wave abnormality Prolonged QT Abnormal ECG No previous ECGs available Confirmed by Juan Miguel Mota ([id number]) on 09/05/2019 8:39:39 PM Referred By: REFERRED SELF Confirmed By:Augustus Mota
[2019-09-05 20:49] LABS: Partial Thromboplastin Ratio 3.2
[2019-09-05 20:55] LABS: Partial Thromboplastin Time 90.3 Seconds (21.0-31.0)
[2019-09-06 02:41] LABS: Partial Thromboplastin Ratio 2.8
[2019-09-06 02:56] LABS: Partial Thromboplastin Time 78.2 Seconds (21.0-31.0)
[2019-09-06] MEDS: NITROGLYCERIN 2% OINTMENT 30GM TUBE EXT SCH ×2 (05:18→13:10)
[2019-09-06] MEDS: METOPROLOL TARTRATE 1 MG/ML VIAL IV SCH ×3 (05:18→19:29)
[2019-09-06] MEDS: HEPARIN SODIUM/DEXTROSE 25,000 UNITS/500 ML BAG IV SCH ×2 (05:29→07:51)
[2019-09-06] MEDS ORDERED: CARBOHYDRATES FOR HYPOGLYCEMIA PO PRN (07:27)
[2019-09-06] MEDS ORDERED: GLUCOSE 10 TABS/TUBE PO PRN (07:27)
[2019-09-06] MEDS ORDERED: GLUCAGON FOR INJ 1 MG VIAL SQ PRN (07:27)
[2019-09-06] MEDS ORDERED: GLUCOSE 40% GEL 15 GM TUBE PO PRN (07:27)
[2019-09-06] MEDS ORDERED: DEXTROSE 50% 50 ML SYRINGE IV PRN (07:27)
[2019-09-06] MEDS ORDERED: CLOBETASOL PROPIONATE 0.05% OINT 15 GM TUBE EXT PRN (07:29)
[2019-09-06] MEDS: ATORVASTATIN 40 MG TAB PO SCH (08:05)
[2019-09-06] MEDS: INSULIN ASPART 100 UNITS/ML 3 ML PEN SC SCH ×4 (08:05→21:50)
[2019-09-06] MEDS: ASPIRIN 81 MG ECTAB PO SCH (08:05)
[2019-09-06] MEDS: ACETAMINOPHEN 325 MG TAB PO PRN (08:15)
[2019-09-06 08:56] LABS: Basophils # (auto) 0.01 K/uL (0-0.2); Basophils % (auto) 0.1 %; Eosinophils # (auto) 0.07 K/uL (0-0.5); Eosinophils % (auto) 0.9 %; Hematocrit (blood only) 41.3 % (42-52); Hemoglobin 13.6 g/dL (14.0-18.0); Immature Granulocytes # (auto) 0.03 K/uL (0.00-0.02); Immature Granulocytes % (auto) 0.4 %; Lymphocytes # (auto) 1.99 K/uL (1.2-3.4); Lymphocytes % (auto) 24.8 %; Mean Corpuscular Hemoglobin 30.4 pg (25-34); Mean Corpuscular Hgb Conc 32.9 g/dL (32-36); Mean Corpuscular Volume 92.2 fL (80-100); Mean Platelet Volume 9.1 fL (7.4-10.4); Monocytes # (auto) 0.56 K/uL (0.11-0.59); Neutrophils # (auto) 5.37 K/uL (1.4-6.5); Neutrophils % (auto) 66.8 %; Platelet Count 201 K/uL (130-400); RDW Coefficient of Variation 14.1 % (11.5-14.5); RDW Standard Deviation 47.3 fL (36.4-46.3); Red Blood Count 4.48 M/uL (4.7-6.1); White Blood Count 8.03 K/uL (4.8-10.8)
--- NOTE | 2019-09-06 09:02 | Electrocardiogram Report ---
Test Reason : Blood Pressure : / mmHG Vent. Rate : 095 BPM Atrial Rate : 095 BPM P-R Int : 172 ms QRS Dur : 100 ms QT Int : 392 ms P-R-T Axes : 056 058 004 degrees QTc Int : 492 ms Normal sinus rhythm Incomplete right bundle branch block Nonspecific T wave abnormality Inferior leads Prolonged QT Abnormal ECG When compared with ECG of 05-SEP-2019 13:44, No significant change was found Confirmed by Dorian Dewey ([id number]) on 09/06/2019 9:02:02 AM Referred By: REFERRED SELF Confirmed By:Dorian Dewey
[2019-09-06 09:20] LABS: Partial Thromboplastin Ratio 2.3
--- NOTE | 2019-09-06 09:20 | Electrocardiogram Report ---
Test Reason : Blood Pressure : / mmHG Vent. Rate : 098 BPM Atrial Rate : 098 BPM P-R Int : 170 ms QRS Dur : 098 ms QT Int : 364 ms P-R-T Axes : 062 066 003 degrees QTc Int : 464 ms Normal sinus rhythm Incomplete right bundle branch block Nonspecific T wave abnormality Inferior leads Abnormal ECG When compared with ECG of 05-SEP-2019 14:46, No significant change was found Confirmed by Dorian Dewey ([id number]) on 09/06/2019 9:19:52 AM Referred By: REFERRED SELF Confirmed By:Dorian Dewey
[2019-09-06 09:21] LABS: BUN Creatinine Ratio 18.7 (10-20); Calcium 8.7 mg/dl (8.5-10.1); Creatinine Clr Calc Pharmacy 83.7 ml/min; Est GFR (African American) 79.5; Est GFR (Non-African American) 68.6; Potassium 3.8 mmol/L (3.5-5.1)
[2019-09-06 09:22] LABS: Partial Thromboplastin Time 63.5 Seconds (21.0-31.0)
[2019-09-06 09:29] LABS: Troponin I 0.544 ng/ml (0-0.045)
[2019-09-06 09:58] LABS: Estimated Average Glucose 151 mg/dl; Hemoglobin A1C 6.9 % (4.5-5.6)
--- NOTE | 2019-09-06 10:34 | XCELERA ---
[id number]
--- NOTE | 2019-09-06 11:40 | Pre Anesthesia Assessment ---
Date of Service September 06, 2019 Pre Sedation Assessment Vital Signs Temp Pulse Pulse Pulse Pulse Pulse Resp 09/06/19 11:36 77 16 09/06/19 11:24 36.9 C 82 18 09/06/19 09:00 80 09/06/19 07:56 36.7 C 86 17 09/06/19 03:34 36.7 C 88 17 09/05/19 23:58 96 H 09/05/19 23:32 95 H 09/05/19 23:21 37.2 C 95 H 18 09/05/19 20:12 36.8 C 91 H 18 09/05/19 17:48 92 H 09/05/19 17:46 92 H 09/05/19 15:31 96 H 18 09/05/19 15:15 95 H 14 09/05/19 15:01 92 H 13 09/05/19 15:00 36.6 C 96 H 102 H 24 09/05/19 14:45 94 H 21 09/05/19 14:30 92 H 12 09/05/19 14:15 97 H 24 09/05/19 14:14 37 C 92 H 22 09/05/19 14:00 95 H 17 09/05/19 13:59 97 H 13 09/05/19 13:45 100 H 21 09/05/19 13:41 BP BP BP Pulse Ox 09/06/19 11:36 135/90 95 09/06/19 11:24 129/71 94 09/06/19 09:00 09/06/19 07:56 126/78 93 09/06/19 03:34 123/78 93 09/05/19 23:58 09/05/19 23:32 09/05/19 23:21 118/77 92 09/05/19 20:12 115/80 90 09/05/19 17:48 128/77 09/05/19 17:46 128/77 09/05/19 15:31 125/87 96 09/05/19 15:15 140/81 95 09/05/19 15:01 94 09/05/19 15:00 136/89 151/100 H 92 09/05/19 14:45 127/90 97 09/05/19 14:30 128/90 97 09/05/19 14:15 110/85 95 09/05/19 14:14 145/95 H 98 06/28/20 14:00 142/92 H 96 09/05/19 13:59 142/90 H 92 09/05/19 13:45 148/91 H 94 09/05/19 13:41 145/95 H 94 Cardiovascular + regular rate Respiratory + respiratory effort normal Pre-Sedation Airway Assessment Smoking Status: Never smoker Hx Sleep Apnea: No Hx Difficult Intubation: No Short, Thick Neck: No Thyromental Distance: > or= 3.5 Finger Breadths Oral Cavity: + WNL Mallampati Class: III ASA: ASA3 NPO Status Date of Last Intake of Fluids: 09/06/19 Time of Last Intake of Fluids: 08:00 Last Oral Intake of Fluids Comment: sip with meds Date of Last Intake of Solid Food: 09/05/19 Time of Last Intake of Solid Foods: 08:00 Procedure Planning Contraindications for Sedation: none Current Medications Reviewed: Yes Notes The planned sedation has been discussed with the patient. Informed Consent was obtained. I have identified the patient, determined the appropriateness of sedation and have assessed the patient immediately prior to the procedure. All medicine(s) and interventions are by my order.
[2019-09-06] MEDS ORDERED: MIDAZOLAM HCL 1 MG/ML 2ML VIAL ONE (12:07)
[2019-09-06] MEDS ORDERED: fentaNYL citrate 100 MCG/2 ML VIAL ONE (12:07)
[2019-09-06] MEDS ORDERED: HEPARIN (PORCINE) 1000 UNIT/ML 10 ML (CATH LAB USE ONLY) ONE (12:07)
[2019-09-06] MEDS ORDERED: NiCARDipine HCL INJ 2.5 MG/ML 10 ML AMP ONE (12:07)
[2019-09-06] MEDS ORDERED: NITROGLYCERIN/D5W 100MCG/ML 20ML SYR ONE (12:08)
--- NOTE | 2019-09-06 13:03 | Post Anesthesia Assessment ---
Date of Service September 06, 2019 Post Sedation Assessment Vital Signs Temp Pulse Pulse Pulse Pulse Pulse Resp 09/06/19 12:48 36.8 C 73 18 09/06/19 11:36 77 16 09/06/19 11:24 36.9 C 82 18 09/06/19 09:00 80 09/06/19 07:56 36.7 C 86 17 09/06/19 03:34 36.7 C 88 17 09/05/19 23:58 96 H 09/05/19 23:32 95 H 09/05/19 23:21 37.2 C 95 H 18 09/05/19 20:12 36.8 C 91 H 18 09/05/19 17:48 92 H 09/05/19 17:46 92 H 09/05/19 15:31 96 H 18 09/05/19 15:15 95 H 14 09/05/19 15:01 92 H 13 09/05/19 15:00 36.6 C 96 H 102 H 24 09/05/19 14:45 94 H 21 09/05/19 14:30 92 H 12 09/05/19 14:15 97 H 24 09/05/19 14:14 37 C 92 H 22 09/05/19 14:00 95 H 17 09/05/19 13:59 97 H 13 09/05/19 13:45 100 H 21 09/05/19 13:41 BP BP BP Pulse Ox 09/06/19 12:48 134/83 93 09/06/19 11:36 135/90 95 09/06/19 11:24 129/71 94 09/06/19 09:00 09/06/19 07:56 126/78 93 09/06/19 03:34 123/78 93 09/05/19 23:58 09/05/19 23:32 09/05/19 23:21 118/77 92 09/05/19 20:12 115/80 90 09/05/19 17:48 128/77 09/05/19 17:46 128/77 09/05/19 15:31 125/87 96 09/05/19 15:15 140/81 95 09/05/19 15:01 94 09/05/19 15:00 136/89 151/100 H 92 09/05/19 14:45 127/90 97 09/05/19 14:30 128/90 97 09/05/19 14:15 110/85 95 09/05/19 14:14 145/95 H 98 09/05/19 14:00 142/92 H 96 09/05/19 13:59 142/90 H 92 09/05/19 13:45 148/91 H 94 09/05/19 13:41 145/95 H 94 Recovery Score Activity: Moves 4 extremities Respiration: Deep Breath/Cough Circulation: +/-20% PreAnes Value Consciousness: Fully Awake Oxygen Saturation: > 92% On Room Air Discharge Sedation Level of Care: Fast Track Phase II Post Sedation Plan On clinical assessment, the patient appears to have tolerated the sedation without complications. Patient is recovering as anticipated. Patient will continue to be monitored by nursing and may be discharged when sedation discharge criteria are met per below protocol. Upon Completions of procedure up to 15 minutes continue every 5 minute vital signs and the P.A.R. score; then discharge to a Phase I or Fast Track to Phase II per the following guidelines: * Discharge Patient to appropriate Phase II area if PAR is 8 or greater or return to pre- procedure baseline. The post - procedure orders will be as directed. * If PAR score is less than 8 or not return to pre-procedure baseline then patient will follow Phase I monitoring till PAR is reached for Phase II. The Phase I may be done in procedure room or may call to secure a Phase I area. * If naloxone or flumazenil are used for reversal, hold in Phase I for continued monitoring from when last reversal dose was given for a minimum of 60 minutes or longer pending the nurse and/or physician discretion of patient condition before discharge to Phase II. Please call the Sedation Physician to re-evaluate and complete post-note for discharge to Phase II area. Do NOT discharge from procedure sedation or Phase 1 until post- sedation evaluation note is complete by procedure /sedation MD Sedation Discharge Instructions to be given to the patient at discharge to home.
--- NOTE | 2019-09-06 13:09 | Cardiac Catheterization ---
[facility] Data: Renewable Energy Technician Cardiac Status Clinical evaluation leading to the procedure CAD Presenation: Non STEMI Diagnostic Physicians Name: Juan Miguel Mota MD Closure Device Recommendations: Medical Therapy and/or Counseling Cardiac Cath Procedure Full Procedure Date September 06, 2019 Pre-Procedure Diagnosis Pre-Procedure Diagnosis: Non STEMI AUC Score AUC Score: 8 Post-Procedure Diagnosis Post-Procedure Diagnosis: Mild CAD Procedure(s) Performed Procedure(s) Performed: Coronary Angiography and Left Heart Cath Channel Process Supervisor Juan Miguel Mota MD Lining Marker(s) none Estimated Blood Loss Estimated Blood Loss: 10cc Medication(s) Medication(s): Fentanyl, Heparin, Lidocaine 1%, Nicardipine, Nitroglycerin and Versed Summary of Findings Procedure performed: Left heart catheterization, coronary angiography Staff bicycle repair technician: Juan Miguel Mota MD Indication: The patient is a 63-year-old gentleman with risk factors for coronary artery disease and presentation of syncope and chest pain. He was noted have elevated cardiac biomarkers and abnormal EKG. Based on these objective findings and his presenting symptoms he is felt to be a good candidate for coronary angiography. Procedure detail: The patient was informed of the risks benefits alternatives to the intended procedure. He understood such in which proceed. He was taken to the cardiac catheterization suite in a fasting state. Conscious sedation was administered per protocol the patient was monitored electrocardiographically throughout today's procedure. The right wrist was prepped and draped in usual sterile fashion. This area was anesthetized using subcutaneous menstruation lidocaine solution. Right radial artery was subsequently access using Seldinger technique and sheath was placed over guidewire at this site. The sheath we used tilted passage of the cardiac catheter for selective coronary angiography and left heart catheterization. Images were taken multiple orthogonal views prior to removal of the catheter and sheath. Patient tolerated procedure well. There were no immediate complications. Equipment used: Five [place] tiger 4 Findings: Coronary angiography Left main: Left main coronary artery is normal in size and caliber. There was somewhat of cloacal portion which resulted in an ongoing LAD, high 1st diagonal, small high OM and left circumflex vessel. There is no significant disease in this distribution. Left anterior descending: Left anterior descending was a large transapical vessel. It produced a very high 1st diagonal branch versus ramus intermedius. There was another proximal diagonal of medium caliber. There are some luminal irregularities in these vessels but no discrete stenoses Left circumflex: Left circumflex artery was a nondominant vessel. The produced a medium-sized very high 1st OM and a diminutive 2nd OM. There was a small 3rd OM and a large 4th OM system. There are some luminal irregularities but no discrete stenoses Right coronary artery: Right coronary was a dominant vessel producing a large PLV and PDA branch. No discrete lesions in the right coronary artery. Impression: No obstructive coronary disease Right dominant system No aortic stenosis Normal left ventricular end-diastolic pressure Hemodynamics Rest Ao:: 106/66 millimeters of mercury Final Ao: 105/67 millimeters of mercury LV: 116/1 millimeter mercury with left ventricular end-diastolic pressure of 10 millimeters of mercury Recommendations Recommendations: Medical Therapy and/or Counseling Specimens Specimens: None Radiation Exposure (mGy) 752 Contrast (mls) Forty Procedural Complication(s) None Disposition PCU I attest to the content of the Intraoperative Record and any orders documented therein. Any exceptions are noted below. [facility] Card Cath Procedure Codes Cardiac Catheterization Procedure 1: Cardiovascular Cath Procedures: 11271 Coronaries and LHC (+/-LV) Moderate Sedation Procedure 1: Sedation/Anesthesia: 96132 Mod Sedation by the same physician;Init15 Min Child Age 5 & Up PG Care Time/CCT Total # of Minutes Spent Total Time Spent with Patient: Total time spent is greater than 50% in coordination of care (as documented) at patient's floor/unit and/or counseling patient:
[2019-09-06] MEDS ORDERED: OPTIRAY 320 125ml IV PRN (13:51)
--- NOTE | 2019-09-06 14:11 | CT Scan Report ---
CT ANGIOGRAPHY OF THE CHEST, PULMONARY EMBOLUS PROTOCOL CLINICAL HISTORY: Shortness of breath. Chest pain. Chest pressure. COMPARISON STUDY: Chest radiograph September 05, 2019. TECHNIQUE: Following IV administration of 97 mL of Optiray-320, helical axial images of the chest wer e obtained utilizing the pulmonary embolus protocol. Maximal intensity projections and sagittal and coronal reformats were viewed on an independent 3D workstation. IV contrast was administered without complication. Automated exposure control was utilized for the study. A dose lowering technique was utilized adhering to the principles of ALARA. CT DOSE: 734.21 mGy.cm FINDINGS: Note is made of extensive bilateral pulmonary emboli. Specifically, emboli are noted withi n the distal right and left pulmonary arteries and extend into the lobar and segmental branches of micaela th lungs. There is evidence for right heart strain with flattening of the interventricular septum. Th ere is no pericardial effusion. No thoracic lymphadenopathy is present. No pulmonary infarct is noted . There is no pneumothorax or pleural effusion. Bony thorax and upper abdomen are unremarkable. IMPRESSION: Extensive bilateral pulmonary emboli with findings suggestive of right heart strain. Albert perez discussed with Dr. Mota at time of dictation. ACT 112: Negative or not required by law. Electronically signed by: Nilay Marquez M.D. 09/06/2019 2:09 PM
--- NOTE | 2019-09-06 16:08 | Cardiology Progress Note ---
Date of Service September 06, 2019 Assessment & Plan (1) NSTEMI (non-ST elevated myocardial infarction): Not related to an acute coronary syndrome. Likely related to his acute pulmonary embolus. As such, he does not require dual anti-platelet therapy. He will require systemic anticoagulation. (2) Syncope: This now appears to be secondary to an acute pulmonary embolus. (3) Hypertension: (4) Hyperlipidemia: (5) Diabetes mellitus: Will need to hold metformin to facilitate coronary angiography. He can resume his metformin on Friday. (6) Pulmonary embolus: Chest CT demonstrated pulmonary embolus. This is likely etiology of his symptoms and biomarker elevations. This is also consistent with his right heart dilation and elevated pulmonary pressures on echocardiogram. He has been maintained on heparin since admission. He will need to be transitioned to an oral anticoagulant such as Eliquis or Xarelto. Given his prior history of DVT, he will likely require lifelong anticoagulation. Admission and Anticipated Discharge Date Admission Date: September 05, 2019 Subjective This afternoon the patient claims to be feeling well. Did not report any recurrence of his index symptoms such as chest pressure discomfort. No dizziness lightheadedness. No breathing difficulty. No pleuritic chest pain. Review of Systems Review of Systems: Per HPI Physical Exam Physical Exam: The patient is alert and oriented. Mood and affect appeared normal. He answered all questions appropriately. HEENT: Pupils are equal and reactive to light and accommodation. Extraocular movements are intact. The sclerae are anicteric. Neuro: Cranial nerves intact Lungs: Clear to auscultation bilaterally. He has good air movement without use of accessory muscles. No rales wheezes or rhonchi. Cardiac: Heart demonstrates a regular rate and rhythm. Normal S1 and S2. No murmurs on examination. Pulses: The patient has palpable radial pulses bilaterally that are equal in intensity Extremities: There was no evidence of hypoperfusion. There is no cyanosis or clubbing. There is no edema. Right radial wrist access site without he bleeding. And slightly cool to the touch but no discoloration. Hemo band in place Skin: I did not appreciate any rashes on examination today. Results & Data ([facility]) Vital Signs (Past 12 Hours) Vital Signs Temp Pulse Pulse Pulse Resp BP BP 09/06/19 15:03 84 118/82 09/06/19 14:30 89 09/06/19 14:03 92 H 125/86 09/06/19 13:33 75 142/93 H 09/06/19 13:09 76 138/76 09/06/19 13:03 69 142/87 H 09/06/19 12:48 36.8 C 73 18 134/83 09/06/19 11:36 77 16 135/90 09/06/19 11:24 36.9 C 82 18 129/71 09/06/19 09:00 80 09/06/19 07:56 36.7 C 86 17 BP Pulse Ox 09/06/19 15:03 09/06/19 14:30 09/06/19 14:03 09/06/19 13:33 09/06/19 13:09 09/06/19 13:03 09/06/19 12:48 93 09/06/19 11:36 95 09/06/19 11:24 94 09/06/19 09:00 09/06/19 07:56 126/78 93 Laboratory Results Abnormal Lab Results 09/05/19 09/05/19 09/05/19 17:25 20:14 20:14 WBC RBC Hgb Hct MCV MCH MCHC RDW Std Deviation RDW Coeff of Abraham Plt Count MPV Immature Gran % (Auto) Neut % (Auto) Lymph % (Auto) Snyder % (Auto) Eos % (Auto) Baso % (Auto) Neut # (Auto) Lymph # (Auto) Snyder # (Auto) Eos # (Auto) Baso # (Auto) Immature Gran # (Auto) APTT 90.3 H* PTT Ratio 3.2 Sodium Potassium Chloride Carbon Dioxide Anion Gap BUN Creatinine Est Cr Clr Drug Dosing Est GFR ( Amer) Est GFR (Non-Af Amer) BUN/Creatinine Ratio Glucose POC Glucose Estimat Average Glucose Hemoglobin A1c Calcium Troponin I 0.474 H* 0.576 H* Triglycerides Cholesterol LDL Cholesterol, Calc VLDL Cholesterol, Calc HDL Cholesterol Cholesterol/HDL Ratio 09/06/19 09/06/19 09/06/19 02:09 02:09 07:49 WBC RBC Hgb Hct MCV MCH MCHC RDW Std Deviation RDW Coeff of Abraham Plt Count MPV Immature Gran % (Auto) Neut % (Auto) Lymph % (Auto) Snyder % (Auto) Eos % (Auto) Baso % (Auto) Neut # (Auto) Lymph # (Auto) Snyder # (Auto) Eos # (Auto) Baso # (Auto) Immature Gran # (Auto) APTT 78.2 H* PTT Ratio 2.8 Sodium Potassium Chloride Carbon Dioxide Anion Gap BUN Creatinine Est Cr Clr Drug Dosing Est GFR ( Amer) Est GFR (Non-Af Amer) BUN/Creatinine Ratio Glucose POC Glucose 175 H Estimat Average Glucose Hemoglobin A1c Calcium Troponin I 0.628 H* Triglycerides Cholesterol LDL Cholesterol, Calc VLDL Cholesterol, Calc HDL Cholesterol Cholesterol/HDL Ratio 09/06/19 09/06/19 09/06/19 08:46 08:46 08:46 WBC 8.03 RBC 4.48 L Hgb 13.6 L Hct 41.3 L MCV 92.2 MCH 30.4 MCHC 32.9 RDW Std Deviation 47.3 H RDW Coeff of Abraham 14.1 Plt Count 201 MPV 9.1 Immature Gran % (Auto) 0.4 Neut % (Auto) 66.8 Lymph % (Auto) 24.8 Snyder % (Auto) 7.0 Eos % (Auto) 0.9 Baso % (Auto) 0.1 Neut # (Auto) 5.37 Lymph # (Auto) 1.99 Snyder # (Auto) 0.56 Eos # (Auto) 0.07 Baso # (Auto) 0.01 Immature Gran # (Auto) 0.03 H APTT 63.5 H* PTT Ratio 2.3 Sodium 137 Potassium 3.8 Chloride 103 Carbon Dioxide 27 Anion Gap 6.0 BUN 21 H Creatinine 1.12 Est Cr Clr Drug Dosing 83.7 Est GFR ( Amer) 79.5 Est GFR (Non-Af Amer) 68.6 BUN/Creatinine Ratio 18.7 Glucose 164 H POC Glucose Estimat Average Glucose Hemoglobin A1c Calcium 8.7 Troponin I 0.544 H* Triglycerides 131 Cholesterol 150 LDL Cholesterol, Calc 87 VLDL Cholesterol, Calc 26 HDL Cholesterol 37 Cholesterol/HDL Ratio 4 09/06/19 09/06/19 08:46 12:47 WBC RBC Hgb Hct MCV MCH MCHC RDW Std Deviation RDW Coeff of Abraham Plt Count MPV Immature Gran % (Auto) Neut % (Auto) Lymph % (Auto) Snyder % (Auto) Eos % (Auto) Baso % (Auto) Neut # (Auto) Lymph # (Auto) Snyder # (Auto) Eos # (Auto) Baso # (Auto) Immature Gran # (Auto) APTT PTT Ratio Sodium Potassium Chloride Carbon Dioxide Anion Gap BUN Creatinine Est Cr Clr Drug Dosing Est GFR ( Amer) Est GFR (Non-Af Amer) BUN/Creatinine Ratio Glucose POC Glucose 164 H Estimat Average Glucose 151 Hemoglobin A1c 6.9 H Calcium Troponin I Triglycerides Cholesterol LDL Cholesterol, Calc VLDL Cholesterol, Calc HDL Cholesterol Cholesterol/HDL Ratio Diagnostic Findings Echocardiogram performed today revealed preserved LV systolic function without wall motion abnormality. Right ventricle was dilated with slightly reduced function. Right atrium was dilated. There elevated pulmonary pressures. Coronary angiography did not reveal any obstructive coronary disease. Left ventricular end-diastolic pressures were normal. Chest CT demonstrated bilateral pulmonary emboli with evidence of right heart strain. PG Care Time/CCT Total # of Minutes Spent Total Time Spent with Patient: Total time spent is greater than 50% in coordination of care (as documented) at patient's floor/unit and/or counseling patient: Coding Level of Care Code 14326 Subseq Hosp Care Lvl 3 Diagnoses NSTEMI (non-ST elevated myocardial infarction) I21.4 Syncope R55 Hypertension I10 Hypertension type: essential hypertension Hyperlipidemia E78.5 Diabetes mellitus E11.9 Pulmonary embolus I26.99 (1) Hypertension Hypertension type: essential hypertension Qualified Code(s): I10 - Essential (primary) hypertension
[2019-09-06] MEDS ORDERED: WARFARIN SOD 5 MG TAB PO STA (16:58)
[2019-09-06 17:39] LABS: INR 1.1 (0.9-1.1); Prothrombin Time 11.4 Seconds (9.0-12.0)
--- NOTE | 2019-09-06 21:33 | Hospitalist Progress Note ---
Date of Service September 06, 2019 Assessment & Plan (1) Pulmonary embolus: Patient has acute bilateral pulmonary emboli. This was diagnosed as his chest pain and cardiac cath was negative. His sister has prothrrombin gene mutation and antiphospholipid antibodies. ORDERED TESSTS TO CONFIRM THIS IN PATIENT. Will place patient on coumadin, 5mg today, will closely monitor INR. will continue heparin for now. (2) NSTEMI (non-ST elevated myocardial infarction): Appears this has been ruled out with negative cardiac cath. Consult cardiology (3) Diabetes mellitus: HbA1C in AM Hold metformin Insulin sliding scale with BSG ACHS (4) Hyperlipidemia: Lipid panel in AM Start high dose atorvastatin (5) Hypertension: Continue metoprolol 25mg PO BID as above Hold losartan pending BP measurements overnight while on nitroglycerin paste (6) Psoriasis: Continue PRN steroid creams (7) DVT prophylaxis: Heparin drip as above Admission and Anticipated Discharge Date Admission Date: September 05, 2019 Subjective Patient reports feeling well. He has no new complaints. Review of Systems Review of Systems: All systems reviewed & are unremarkable except as noted in HPI & below Physical Exam Constitutional: well developed, well nourished and + obese; no acute distress Eyes: + anicteric sclerae; normal pupil size ENMT: external ear and nose normal, oropharynx normal Neck: trachea midline, no thyromegaly Cardiovascular: Rate/Rhythm: regular rate and regular rhythm Heart Sounds: no murmur Vessels: no JVD Extremities: normal capillary refill and + pedal edema (trace b/l); no calf tenderness Gastrointestinal (Abdomen): normal bowel sounds, soft, nontender, no hepatosplenomegaly Musculoskeletal: no cyanosis or clubbing, extremities motor strength 5/5 Skin: no rashes, warm and dry Neurologic: moves all extremities and awake; no focal motor deficits and not confused Speech / Cognition: normal speech Motor/Sensory: no tremor and no pronator drift Psychiatric: A+Ox3, euthymic affect Lymphatic: no cervical or axillary lymphadenopathy Results & Data Results & Data ([facility]) Vital Signs (Past 12 Hours) Vital Signs Temp Pulse Pulse Pulse Resp BP BP 09/06/19 19:42 36.9 C 77 21 124/82 09/06/19 19:29 90 09/06/19 15:03 84 118/82 09/06/19 14:30 89 09/06/19 14:03 92 H 125/86 09/06/19 13:33 75 142/93 H 09/06/19 13:09 76 138/76 09/06/19 13:03 69 142/87 H 09/06/19 12:48 36.8 C 73 18 134/83 09/06/19 11:36 77 16 135/90 09/06/19 11:24 36.9 C 82 18 129/71 Pulse Ox 09/06/19 19:42 94 09/06/19 19:29 09/06/19 15:03 09/06/19 14:30 09/06/19 14:03 09/06/19 13:33 09/06/19 13:09 09/06/19 13:03 09/06/19 12:48 93 09/06/19 11:36 95 09/06/19 11:24 94 PG Care Time/CCT Total # of Minutes Spent Total Time Spent with Patient: Total time spent is greater than 50% in coordination of care (as documented) at patient's floor/unit and/or counseling patient: Coding Level of Care Code 68890 Subseq Hosp Care Lvl 3 Diagnoses Pulmonary embolus I26.99 NSTEMI (non-ST elevated myocardial infarction) I21.4 Diabetes mellitus E11.9 Hyperlipidemia E78.5 Hypertension I10 Hypertension type: essential hypertension Psoriasis L40.9 DVT prophylaxis Z29.9 Time Spent (min) 35 (1) Hypertension Hypertension type: essential hypertension Qualified Code(s): I10 - Essential (primary) hypertension
[2019-09-07] MEDS: METOPROLOL TARTRATE 1 MG/ML VIAL IV SCH (00:14)
[2019-09-07] MEDS: HEPARIN SODIUM/DEXTROSE 25,000 UNITS/500 ML BAG IV SCH ×2 (01:59→20:14)
[2019-09-07 06:49] LABS: INR 1.1 (0.9-1.1); Prothrombin Time 11.4 Seconds (9.0-12.0)
[2019-09-07] MEDS: NITROGLYCERIN 2% OINTMENT 30GM TUBE EXT SCH (07:06)
[2019-09-07 07:12] LABS: Partial Thromboplastin Ratio 2.2
[2019-09-07 07:13] LABS: Partial Thromboplastin Time 61.5 Seconds (21.0-31.0)
[2019-09-07] MEDS: ASPIRIN 81 MG ECTAB PO SCH (08:26)
[2019-09-07] MEDS: METOPROLOL SUCC 25MG EXT REL TAB PO SCH (08:26)
[2019-09-07] MEDS: INSULIN ASPART 100 UNITS/ML 3 ML PEN SC SCH ×4 (08:27→20:57)
[2019-09-07] MEDS: ATORVASTATIN 40 MG TAB PO SCH (08:27)
[2019-09-07] MEDS ORDERED: WARFARIN SOD 5 MG TAB PO STA (13:50)
--- NOTE | 2019-09-07 22:54 | Hospitalist Progress Note ---
Date of Service September 07, 2019 Assessment & Plan (1) Pulmonary embolus: Patient has acute bilateral pulmonary emboli. This was diagnosed as his chest pain and cardiac cath was negative. His sister has prothrrombin gene mutation and antiphospholipid antibodies. ORDERED TESSTS TO CONFIRM THIS IN PATIENT. INR at 1.1, reordered second dose of 5 mg of coumadin. will continue heparin for now. (2) NSTEMI (non-ST elevated myocardial infarction): Appears this has been ruled out with negative cardiac cath. Consulted cardiology, appreciate input. (3) Diabetes mellitus: HbA1C in AM Hold metformin Insulin sliding scale with BSG ACHS (4) Hyperlipidemia: Lipid panel in AM Start high dose atorvastatin (5) Hypertension: Continue metoprolol 25mg PO BID as above Hold losartan pending BP measurements overnight while on nitroglycerin paste (6) Psoriasis: Continue PRN steroid creams (7) DVT prophylaxis: Heparin drip as above Admission and Anticipated Discharge Date Admission Date: September 05, 2019 Subjective Patient reports feeling well. He has no new complaints at this time. He had multiple questions which were answered. Review of Systems Review of Systems: All systems reviewed & are unremarkable except as noted in HPI & below Physical Exam Physical Exam: Constitutional: well developed, well nourished and + obese; no acute distress Eyes: + anicteric sclerae; normal pupil size ENMT: external ear and nose normal, oropharynx normal Neck: trachea midline, no thyromegaly Cardiovascular: Rate/Rhythm: regular rate and regular rhythm Heart Sounds: no murmur Vessels: no JVD Extremities: normal capillary refill and + pedal edema (trace b/l); no calf tenderness Gastrointestinal (Abdomen): normal bowel sounds, soft, nontender, no hepatosplenomegaly Musculoskeletal: no cyanosis or clubbing, extremities motor strength 5/5 Skin: no rashes, warm and dry Neurologic: moves all extremities and awake; no focal motor deficits and not confused Speech / Cognition: normal speech Motor/Sensory: no tremor and no pronator drift Psychiatric: A+Ox3, euthymic affect Lymphatic: no cervical or axillary lymphadenopathy Results & Data Results & Data ([facility]) Vital Signs (Past 12 Hours) Vital Signs Temp Pulse Pulse Resp BP Pulse Ox 09/07/19 19:47 36.6 C 87 19 138/89 97 09/07/19 16:00 36.5 C 80 70 22 159/81 H 96 09/07/19 15:50 36.6 C 70 17 133/85 97 09/07/19 11:40 36.8 C 84 18 129/71 98 PG Care Time/CCT Total # of Minutes Spent Total Time Spent with Patient: Total time spent is greater than 50% in coord ination of care (as documented) at patient's floor/unit and/or counseling patient: Coding Level of Care Code 43138 Subseq Hosp Care Lvl 3 Diagnoses Pulmonary embolus I26.99 NSTEMI (non-ST elevated myocardial infarction) I21.4 Diabetes mellitus E11.9 Hyperlipidemia E78.5 Hypertension I10 Hypertension type: essential hypertension Psoriasis L40.9 DVT prophylaxis Z29.9 Time Spent (min) 35 (1) Hypertension Hypertension type: essential hypertension Qualified Code(s): I10 - Essential (primary) hypertension
[2019-09-08 07:33] LABS: INR 1.1 (0.9-1.1); Partial Thromboplastin Ratio 2.1; Prothrombin Time 11.8 Seconds (9.0-12.0)
[2019-09-08 07:37] LABS: Partial Thromboplastin Time 59.8 Seconds (21.0-31.0)
[2019-09-08] MEDS ORDERED: WARFARIN SOD 7.5 MG TAB PO ONE (08:17)
[2019-09-08] MEDS: INSULIN ASPART 100 UNITS/ML 3 ML PEN SC SCH ×4 (08:21→21:15)
[2019-09-08] MEDS: METOPROLOL SUCC 25MG EXT REL TAB PO SCH (08:22)
[2019-09-08] MEDS: ATORVASTATIN 40 MG TAB PO SCH (08:22)
[2019-09-08] MEDS: ASPIRIN 81 MG ECTAB PO SCH (08:23)
[2019-09-08] MEDS: HEPARIN SODIUM/DEXTROSE 25,000 UNITS/500 ML BAG IV SCH (14:44)
--- NOTE | 2019-09-08 22:14 | Hospitalist Progress Note ---
Date of Service September 08, 2019 Assessment & Plan (1) Pulmonary embolus: Patient has acute bilateral pulmonary emboli. This was diagnosed as his chest pain and cardiac cath was negative. His sister has prothrrombin gene mutation and antiphospholipid antibodies. ORDERED TESTS TO CONFIRM THIS IN PATIENT. INR remains beow 1.5 after 2 doses of 5 mg of coumadin. will order 7.5 mg of coumadin. will continue heparin for now. (2) NSTEMI (non-ST elevated myocardial infarction): Appears this has been ruled out with negative cardiac cath. Consulted cardiology, appreciate input. (3) Diabetes mellitus: HbA1C in AM Hold metformin Insulin sliding scale with BSG ACHS (4) Hyperlipidemia: Lipid panel in AM Start high dose atorvastatin (5) Hypertension: Continue metoprolol 25mg PO BID as above Hold losartan pending BP measurements overnight while on nitroglycerin paste (6) Psoriasis: Continue PRN steroid creams (7) DVT prophylaxis: Heparin drip as above Admission and Anticipated Discharge Date Admission Date: September 05, 2019 Subjective 63 yo male reports feeling well. He has no new complaints at this time. Review of Systems Review of Systems: All systems reviewed & are unremarkable except as noted in HPI & below Physical Exam Constitutional: well developed, well nourished and + obese; no acute distress Eyes: + anicteric sclerae; normal pupil size ENMT: external ear and nose normal, oropharynx normal Neck: trachea midline, no thyromegaly Cardiovascular: Rate/Rhythm: regular rate and regular rhythm Heart Sounds: no murmur Vessels: no JVD Extremities: normal capillary refill and + pedal edema (trace b/l); no calf tenderness Gastrointestinal (Abdomen): normal bowel sounds, soft, nontender, no hepatosplenomegaly Musculoskeletal: no cyanosis or clubbing, extremities motor strength 5/5 Skin: no rashes, warm and dry Neurologic: moves all extremities and awake; no focal motor deficits and not confused Speech / Cognition: normal speech Motor/Sensory: no tremor and no pronator drift Psychiatric: A+Ox3, euthymic affect Lymphatic: no cervical or axillary lymphadenopathy Results & Data Results & Data ([facility]) Vital Signs (Past 12 Hours) Vital Signs Temp Pulse Pulse Resp BP Pulse Ox 09/08/19 19:29 36.7 C 80 18 138/80 94 09/08/19 16:00 81 09/08/19 15:39 36.7 C 73 17 136/85 95 09/08/19 11:53 36.5 C 75 18 116/66 94 PG Care Time/CCT Total # of Minutes Spent Total Time Spent with Patient: Total time spent is greater than 50% in coordination of care (as documented) at patient's floor/unit and/or counseling patient: Coding Level of Care Code 01516 Subseq Hosp Care Lvl 2 Diagnoses Pulmonary embolus I26.99 NSTEMI (non-ST elevated myocardial infarction) I21.4 Diabetes mellitus E11.9 Hyperlipidemia E78.5 Hypertension I10 Hypertension type: essential hypertension Psoriasis L40.9 DVT prophylaxis Z29.9 Time Spent (min) 25 (1) Hypertension Hypertension type: essential hypertension Qualified Code(s): I10 - Essential (primary) hypertension
[2019-09-09 06:49] LABS: INR 1.3 (0.9-1.1); Partial Thromboplastin Ratio 2.5; Prothrombin Time 13.9 Seconds (9.0-12.0)
[2019-09-09 07:03] LABS: Partial Thromboplastin Time 69.4 Seconds (21.0-31.0)
[2019-09-09] MEDS: INSULIN ASPART 100 UNITS/ML 3 ML PEN SC SCH ×4 (07:53→21:08)
[2019-09-09] MEDS: ATORVASTATIN 40 MG TAB PO SCH (07:55)
[2019-09-09] MEDS: ASPIRIN 81 MG ECTAB PO SCH (07:55)
[2019-09-09] MEDS: METOPROLOL SUCC 25MG EXT REL TAB PO SCH (07:55)
[2019-09-09] MEDS: HEPARIN SODIUM/DEXTROSE 25,000 UNITS/500 ML BAG IV SCH ×5 (07:59→09:57)
[2019-09-09] MEDS ORDERED: WARFARIN SOD 10 MG TAB PO ONE (09:28)
[2019-09-09 14:49] LABS: Partial Thromboplastin Time 55.5 Seconds (21.0-31.0)
--- NOTE | 2019-09-09 22:29 | Hospitalist Progress Note ---
Date of Service September 09, 2019 Assessment & Plan (1) Pulmonary embolus: Patient has acute bilateral pulmonary emboli. This was diagnosed as his chest pain and cardiac cath was negative. His sister has prothrrombin gene mutation and antiphospholipid antibodies. ORDERED TESTS TO CONFIRM THIS IN PATIENT. INR remains beow 1.5 after 2 doses of 5 mg of coumadin and 7.5 of coumadin will order 10 mg of coumadin will continue heparin for now. (2) NSTEMI (non-ST elevated myocardial infarction): Appears this has been ruled out with negative cardiac cath. Consulted cardiology, appreciate input. (3) Diabetes mellitus: HbA1C in AM Hold metformin Insulin sliding scale with BSG ACHS (4) Hyperlipidemia: Lipid panel in AM Start high dose atorvastatin (5) Hypertension: Continue metoprolol 25mg PO BID as above Hold losartan pending BP measurements overnight while on nitroglycerin paste (6) Psoriasis: Continue PRN steroid creams (7) DVT prophylaxis: Heparin drip as above Admission and Anticipated Discharge Date Admission Date: September 05, 2019 Subjective 63 yo male reports no new symptoms. Review of Systems Review of Systems: All systems reviewed & are unremarkable except as noted in HPI & below Physical Exam Constitutional: well developed, well nourished and + obese; no acute distress Eyes: + anicteric sclerae; normal pupil size ENMT: external ear and nose normal, oropharynx normal Neck: trachea midline, no thyromegaly Cardiovascular: Rate/Rhythm: regular rate and regular rhythm Heart Sounds: no murmur Vessels: no JVD Extremities: normal capillary refill and + pedal edema (trace b/l); no calf tenderness Gastrointestinal (Abdomen): normal bowel sounds, soft, nontender, no hepatosplenomegaly Musculoskeletal: no cyanosis or clubbing, extremities motor strength 5/5 Skin: no rashes, warm and dry Neurologic: moves all extremities and awake; no focal motor deficits and not confused Speech / Cognition: normal speech Motor/Sensory: no tremor and no pronator drift Psychiatric: A+Ox3, euthymic affect Lymphatic: no cervical or axillary lymphadenopathy Results & Data Results & Data ([facility]) Vital Signs (Past 12 Hours) Vital Signs Temp Pulse Pulse Resp BP BP Pulse Ox 09/09/19 20:25 36.8 C 71 21 138/84 94 09/09/19 16:06 36.5 C 60 20 123/70 96 09/09/19 16:00 67 09/09/19 11:13 36.6 C 66 19 146/86 H 97 PG Care Time/CCT Total # of Minutes Spent Total Time Spent with Patient: Total time spent is greater than 50% in coordination of care (as documented) at patient's floor/unit and/or counseling patient: Coding Level of Care Code 68345 Subseq Hosp Care Lvl 2 Diagnoses Pulmonary embolus I26.99 NSTEMI (non-ST elevated myocardial infarction) I21.4 Diabetes mellitus E11.9 Hyperlipidemia E78.5 Hypertension I10 Hypertension type: essential hypertension Psoriasis L40.9 DVT prophylaxis Z29.9 Time Spent (min) 25 (1) Hypertension Hypertension type: essential hypertension Qualified Code(s): I10 - Essential (primary) hypertension
[2019-09-10] MEDS: HEPARIN SODIUM/DEXTROSE 25,000 UNITS/500 ML BAG IV SCH ×3 (03:05→16:27)
[2019-09-10 07:04] LABS: INR 1.9 (0.9-1.1); Partial Thromboplastin Ratio 2.6; Prothrombin Time 19.2 Seconds (9.0-12.0)
[2019-09-10 07:06] LABS: Partial Thromboplastin Time 73.3 Seconds (21.0-31.0)
[2019-09-10] MEDS: ATORVASTATIN 40 MG TAB PO SCH (08:14)
[2019-09-10] MEDS: METOPROLOL SUCC 25MG EXT REL TAB PO SCH (08:14)
[2019-09-10] MEDS: ASPIRIN 81 MG ECTAB PO SCH (08:14)
[2019-09-10] MEDS: INSULIN ASPART 100 UNITS/ML 3 ML PEN SC SCH ×4 (08:16→20:28)
[2019-09-10] MEDS ORDERED: WARFARIN SOD 7.5 MG TAB PO ONE (11:46)
[2019-09-10 13:43] LABS: Partial Thromboplastin Ratio 2.3
[2019-09-10 13:45] LABS: Partial Thromboplastin Time 64.3 Seconds (21.0-31.0)
--- NOTE | 2019-09-10 22:15 | Hospitalist Progress Note ---
Date of Service September 10, 2019 Assessment & Plan (1) Pulmonary embolus: Patient has acute bilateral pulmonary emboli. This was diagnosed as his chest pain and cardiac cath was negative. His sister has prothrrombin gene mutation and antiphospholipid antibodies. ORDERED TESTS TO CONFIRM THIS IN PATIENT. INR is at 1.9, will order coumadin of 7.5 mg will continue heparin for now. anticipate discharge tomorrow. (2) NSTEMI (non-ST elevated myocardial infarction): Appears this has been ruled out with negative cardiac cath. Consulted cardiology, appreciate input. (3) Diabetes mellitus: HbA1C 6.9 Hold metformin Insulin sliding scale with BSG ACHS (4) Hyperlipidemia: LDL at 87 Start high dose atorvastatin (5) Hypertension: Continue metoprolol 25mg PO BID as above Hold losartan pending BP measurements overnight while on nitroglycerin paste (6) Psoriasis: Continue PRN steroid creams (7) DVT prophylaxis: Heparin drip as above Admission and Anticipated Discharge Date Admission Date: September 05, 2019 Subjective 63 yo male reports feeling well. He has no new complaints. Review of Systems Review of Systems: All systems reviewed & are unremarkable except as noted in HPI & below Physical Exam Constitutional: well developed, well nourished and + obese; no acute distress Eyes: + anicteric sclerae; normal pupil size ENMT: external ear and nose normal, oropharynx normal Neck: trachea midline, no thyromegaly Cardiovascular: Rate/Rhythm: regular rate and regular rhythm Heart Sounds: no murmur Vessels: no JVD Extremities: normal capillary refill and + pedal edema (trace b/l); no calf tenderness Gastrointestinal (Abdomen): normal bowel sounds, soft, nontender, no hepatosplenomegaly Musculoskeletal: no cyanosis or clubbing, extremities motor strength 5/5 Skin: no rashes, warm and dry Neurologic: moves all extremities and awake; no focal motor deficits and not confused Speech / Cognition: normal speech Motor/Sensory: no tremor and no pronator drift Psychiatric: A+Ox3, euthymic affect Results & Data Results & Data ([facility]) Vital Signs (Past 12 Hours) Vital Signs Temp Pulse Pulse Resp BP Pulse Ox 09/10/19 19:28 36.3 C L 71 18 131/86 94 09/10/19 15:56 71 09/10/19 15:38 36.5 C 69 18 146/93 H 95 09/10/19 12:00 67 18 143/86 H 96 PG Care Time/CCT Total # of Minutes Spent Total Time Spent with Patient: Total time spent is greater than 50% in coordination of care (as documented) at patient's floor/unit and/or counseling patient: Coding Level of Care Code 53725 Subseq Hosp Care Lvl 2 Diagnoses Pulmonary embolus I26.99 NSTEMI (non-ST elevated myocardial infarction) I21.4 Diabetes mellitus E11.9 Hyperlipidemia E78.5 Hypertension I10 Hypertension type: essential hypertension Psoriasis L40.9 DVT prophylaxis Z29.9 Time Spent (min) 25 (1) Hypertension Hypertension type: essential hypertension Qualified Code(s): I10 - Essential (primary) hypertension
[2019-09-11] MEDS: HEPARIN SODIUM/DEXTROSE 25,000 UNITS/500 ML BAG IV SCH (00:38)
[2019-09-11 06:52] LABS: INR 2.4 (0.9-1.1)
[2019-09-11 07:47] LABS: Partial Thromboplastin Time 83.2 Seconds (21.0-31.0)
[2019-09-11] MEDS: METOPROLOL SUCC 25MG EXT REL TAB PO SCH (08:25)
[2019-09-11] MEDS: ATORVASTATIN 40 MG TAB PO SCH (08:25)
[2019-09-11] MEDS: ASPIRIN 81 MG ECTAB PO SCH (08:25)
[2019-09-11] MEDS: INSULIN ASPART 100 UNITS/ML 3 ML PEN SC SCH (08:26)
[2019-09-11] MEDS ORDERED: ENOXAPARIN 80 MG/0.8 ML SYR SQ SCH (08:45)
[2019-09-11] MEDS ORDERED: WARFARIN SOD 7.5 MG TAB PO ONE ×2 (09:41→10:15)
[2019-09-11 15:09] LABS: B2 Glycoprotein IgA <9 SAU (<=20); B2 Glycoprotein IgG <9 SGU (<=20); B2 Glycoprotein IgM 11 SMU (<=20); Phosphatidylserine IgG <10 U/mL (<10); Phosphatidylserine IgM <25 U/mL (<25)
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
== END 2019-09-11 11:00 | disposition home or self-care (01) | DRG 176 ==
LOC: ED 13:38 → 2S 14:50 → SUATTDRO 14:50 → 2S 15:28